=== PATIENT | male | born 1960 | race Caucasian/White ===

== ENCOUNTER 2017-08-02 19:40 | Emergency (ER) | payer SELFPAY ==
[~2017-08-02] VITALS: Ht 157.5 cm; Wt 61.4 kg
[2017-08-02 19:43] VITALS: BP 147/82; PULSE 99; RESP 16; TEMP 98.4; O2SAT 98
--- NOTE | 2017-08-02 22:02 | PD ---
HPI Chief Complaint: Skin Problem Time Seen by Provider: 22:01 Travel History International Travel<30 days: No Contact w/Intl Traveler<30days: No Traveled to known affect area: No History of Present Illness HPI 56-year-old male with history of asthma presents to the emergency department for evaluation of multiple skin lesions on his hands. 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 He believes some of them may be infected. He reports noticing drainage from site on his hands 2-3 days ago. He denies any fever or chills. They are tender to touch and seemed to be more tender while he is working. Patient is uncertain of his tetanus status. He has no other symptoms to report. PFSH Past Medical History Asthma: Yes Social History Alcohol Use: Yes (socially) Tobacco Use: Yes Substance Use: No Allergies-Medications (Allergen,Severity, Reaction): Coded Allergies: No Known Allergies (Unverified , 08/02/17) Reported Meds & Prescriptions Reported Meds & Active Scripts Active Proair Hfa 8.5 GM Inh (Albuterol Sulfate) 90 Mcg/Act Aer 2 Puff INH Q4HR PRN 108 mcg/actuation Ibuprofen 600 Mg Tab 600 Mg PO Q8HR PRN Bacitracin Topical 500 Unit/Gm Oint 1 Applic TOPICAL BID Keflex (Cephalexin) 500 Mg Cap 500 Mg PO Q6H 5 Days Bactrim DS (Sulfamethoxazole-Trimethoprim) 800-160 Mg Tab 1 Tab PO BID Review of Systems Except as stated in HPI: all other systems reviewed are Neg Physical Exam Narrative GENERAL: Well-nourished, well-developed male patient in no acute distress.. SKIN: Focused skin assessment warm/dry. Multiple scabbed lesions on the dorsal aspect of the bilateral hands. Some of them are started by erythema. Some are macerated. There is no fluctuation. No active draining. HEAD: Normocephalic. EYES: No scleral icterus. No injection or drainage. NECK: Supple, trachea midline. No JVD or lymphadenopathy. CARDIOVASCULAR: Regular rate and rhythm without murmurs, gallops, or rubs. RESPIRATORY: Breath sounds equal bilaterally. No accessory muscle use. MUSCULOSKELETAL: No cyanosis, or edema. Patient has full flexion extension of all the digits of both hands. Cap refill within normal limits. Distal pulses are palpable. BACK: Nontender without obvious deformity. No CVA tenderness. Data Data Last Documented VS Vital Signs Date Time Temp Pulse Resp B/P (MAP) Pulse Ox O2 Delivery O2 Flow Rate FiO2 08/02/17 19:43 98.4 99 16 147/82 (103) 98 Room Air Orders Orders Tetanus/Diphtheria Tox Adult (Tetanus/Di (08/02/17 22:15) Cephalexin (Keflex) (08/02/17 22:15) Sulfamet-Trimeth Ds 800-160 Mg (Bactrim (08/02/17 22:15) Ed Discharge Order (08/02/17 22:13) Wound Care (08/02/17 22:14) MDM Medical Decision Making Medical Screen Exam Complete: Yes Emergency Medical Condition: Yes Medical Record Reviewed: Yes Differential Diagnosis Skin infection versus contact dermatitis versus folliculitis versus wounds Narrative Course 56-year-old male presents to emergency department for evaluation of multiple lesions on his bilateral hands. These are consistent with wounds, however they do appear to be infected. Patient be started on oral antibiotics. He is up-to- date on his tetanus. He is counseled on care and agrees to return immediately with any acute worsening symptoms. 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 Primary Care Physician Patient Instructions: Acute Wound Care (DC), General Instructions Additional Instructions: Keep the wounds clean and dry Wash daily with warm soapy water, pat dry, and apply antibiotic ointment, and dressing Follow-up with a primary care provider Return immediately with any acute worsening of symptoms Med/Other Pt SpecificInfo: Prescription(s) given Scripts Albuterol 8.5 GM Inh (Proair Hfa 8.5 GM Inh) 90 Mcg/Act Aer 2 PUFF INH Q4HR Y for SHORTNESS OF BREATH, #1 INHALER 0 Refills 108 mcg/actuation Prov: Genoveva HooperP 08/02/17 Ibuprofen (Ibuprofen) 600 Mg Tab 600 MG PO Q8HR Y for PAIN, #30 TAB 0 Refills Prov: Genoveva Hooper 08/02/17 Bacitracin Topical (Bacitracin Topical) 500 Unit/Gm Oint 1 APPLIC TOPICAL BID for Infection, #1 TUBE 0 Refills Prov: Genoveva Hooper 08/02/17 Cephalexin (Keflex) 500 Mg Cap 500 MG PO Q6H for Infection for 5 Days, #20 CAP 0 Refills Prov: Genoveva Hooper 08/02/17 Sulfamethoxazole-Trimethoprim (Bactrim DS) 800-160 Mg Tab 1 TAB PO BID for Infection, #20 TAB 0 Refills Prov: Genoveva Hooper 08/02/17 Disposition: 01 DISCHARGE HOME Condition: Stable Genoveva Hooper Aug 02, 2017 22:02
[2017-08-02] MEDS ORDERED: SULFAMETHOXAZOLE-TRIMETHOPRIM DS 800-160 MG TAB PO ONE (22:15)
[2017-08-02] MEDS ORDERED: CEPHALEXIN MONOHYDRATE 500 MG CAP PO ONE (22:15)
[2017-08-02] MEDS ORDERED: TETANUS/DIPHTHERIA TOXOID ADULT 0.5 ML VIAL IM ONE (22:15)
[2017-08-02] MEDS ORDERED: BACT800T5 PO (22:16)
[2017-08-02] MEDS ORDERED: BACI500O2 TOPICAL (22:16)
[2017-08-02] MEDS ORDERED: IBUP-232 PO (22:16)
[2017-08-02] MEDS ORDERED: CEPH-460 PO (22:16)
[2017-08-02] MEDS ORDERED: ALBUAER3 INH (22:48)
== END 2017-08-02 23:17 | disposition home or self-care (01) ==
LOC: NEPD 19:40
DX: L98.9 Disorder of the skin and subcutaneous tissue, unspecified (principal); J45.909 Unspecified asthma, uncomplicated; Z23 Encounter for immunization; Z72.0 Tobacco use
CPT/HCPCS: 90471; 90714